=== PATIENT | male | born 1960 | race Two or more races ===

== ENCOUNTER 2018-08-29 11:52 | Inpatient (IN) | payer BC, OTHER ==
[~2018-08-29] VITALS: Ht 162.6 cm; Wt 79.1 kg
--- NOTE | 2018-08-29 12:16 | NUR ---
CLERICAL COORDINATOR: PT TO ROOM FROM [facility], AMBULATORY UPRIGHT STEADY GAIT
[2018-08-29] MEDS ORDERED: ASPIRIN 81 MG TABLET CHEW PO ONE ×2 (12:30→13:30)
--- NOTE | 2018-08-29 12:34 | NUR ---
PT PRESENTS TO ED WITH CPX 2 DAYS, WORSENING ABOUT 2HRS AGO. 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 PULSES IN LLE 2+ AND CAP REFILL <3SEC. NO PAIN OR REDNESS AT SITE. NO MEDICAL HX. PT SPAINISH SPEAKING WITH SON AT BEDSIDE. PT PLACED ON MONITOR. PT STILL C/O 8-9/10 CHEST PAIN. VSS. CALL LIGHT WITHIN REACH
[2018-08-29 12:41] LABS: BASOPHILS # (AUTO) 0.03 x10^3/uL (0-0.1); BASOPHILS % (AUTO) 1 % (0-1); EOSINOPHILS # (AUTO) 0.07 x10^3/uL (0-0.4); EOSINOPHILS % (AUTO) 1 % (1-7); LYMPHOCYTES # (AUTO) 2.24 x10^3/uL (1-3.4); LYMPHOCYTES % (AUTO) 40 % (22-44); MD NO; MEAN CORPUSCULAR HEMOGLOBIN 31.7 pg (27.5-34.5); MEAN CORPUSCULAR HGB CONC 35.5 g/dL (33.2-36.2); MEAN CORPUSCULAR VOLUME 89.1 fL (81-97); MEAN PLATELET VOLUME 9.2 fL (7.4-10.4); MONOCYTES # (AUTO) 0.26 x10^3/uL (0.2-0.8); MONOCYTES % (AUTO) 5 % (2-9); NEUTROPHILS # (AUTO) 3.03 x10^3/uL (1.8-6.8); NEUTROPHILS % (AUTO) 54 % (42-75); PLATELET COUNT 229 x10^3/uL (130-400); RED BLOOD COUNT 4.76 x10^6/uL (4.38-5.82); RED CELL DISTRIBUTION WIDTH 13.1 % (9.4-14.8)
[2018-08-29 12:52] LABS: ALBUMIN 4.4 g/dL (3.4-5.0); ANION GAP 6 mmol/L (5-15); CALCIUM 8.6 mg/dL (8.5-10.1); CHLORIDE 110 mmol/L (98-107)
[2018-08-29 12:58] LABS: CREATININE 0.98 mg/dL (0.7-1.3); TROPONIN I < 0.015 ng/mL (0.000-0.045)
[2018-08-29] MEDS ORDERED: ASPIRIN 81 MG TABLET CHEW ONE (13:03)
--- NOTE | 2018-08-29 13:30 | NUR ---
PT RESTING IN [place], [place], SON AT BEDSIDE, REPEAT EKG DONE. PT UP FOR RECHECK, VSS, CALL LIGHT WITHIN REACH
--- NOTE | 2018-08-29 14:36 | NUR ---
ATTEMPTED TO CALL REPORT, PLACED ON HOLD AND NO ANSWER. WILL TRY AGAIN
--- NOTE | 2018-08-29 14:42 | NUR ---
REPORT GIVEN TO SARITA RN, TECH PLACING IV THEN PT RTG
[2018-08-29 15:30] VITALS: BP 150/81
[2018-08-29] MEDS ORDERED: HYDROcodone/APAP 5/325 TABLET PO PRN (17:30)
[2018-08-29] MEDS ORDERED: ACETAMINOPHEN 325 MG TABLET PO PRN (17:30)
[2018-08-29] MEDS ORDERED: ONDANSETRON 2MG/ML, 2ML IVPush PRN (17:30)
[2018-08-29] MEDS ORDERED: hydrALAzine 20 MG/ML, 1ML IVPush PRN (17:30)
[2018-08-29] MEDS ORDERED: DOCUSATE 100 MG CAPSULE PO PRN (17:30)
[2018-08-29] MEDS ORDERED: BISACODYL 10 MG SUPP PR PRN (17:30)
[2018-08-29] MEDS ORDERED: NITROGLYCERIN 0.4 MG BOTTLE (25 TABS) SL PRN (17:30)
[2018-08-29] MEDS ORDERED: ONDANSETRON ODT 4 MG PO PRN (17:30)
[2018-08-29] MEDS ORDERED: POLYETHYLENE GLYCOL 17 GM PACKET PO PRN (17:30)
[2018-08-29] MEDS ORDERED: morphine SULFATE 10 MG/ML, 1ML IVPush PRN (17:30)
[2018-08-29] MEDS ORDERED: PROMETHAZINE 25 MG/ML, 1ML IM PRN (17:30)
[2018-08-29] MEDS: SODIUM CHLORIDE 0.9% 1,000 ML IV SCH (18:00)
[2018-08-29] MEDS: HEPARIN 5,000 UNITS/ML, 1ML SQ SCH (18:20)
[2018-08-29] MEDS: LISINOPRIL 10 MG TABLET PO SCH (18:20)
[2018-08-29 18:56] LABS: FREE T4 (FREE THYROXINE) 1.01 ng/dL (0.76-1.46); THYROID STIMULATING HORMONE 0.522 mIU/L (0.358-3.740)
[2018-08-29 19:02] LABS: HEMOGLOBIN A1C 5.8 % (4.2-6.3)
[2018-08-29 20:00] VITALS: BP 123/80
[2018-08-29 21:07] LABS: TROPONIN I < 0.015 ng/mL (0.000-0.045)
[2018-08-29 21:10] LABS: MICROSCOPIC NOT IND
[2018-08-29 21:14] LABS: CULTURE INDICATED? NO
[2018-08-29] MEDS ORDERED: OMNIPAQUE 350 MG/ML, 100ML BOTTLE ONE (22:35)
[2018-08-30 01:44] VITALS: BP 131/86
[2018-08-30] MEDS: HEPARIN 5,000 UNITS/ML, 1ML SQ SCH ×3 (01:58→17:18)
[2018-08-30 02:25] LABS: BASOPHILS # (AUTO) 0.03 x10^3/uL (0-0.1); BASOPHILS % (AUTO) 1 % (0-1); EOSINOPHILS # (AUTO) 0.08 x10^3/uL (0-0.4); EOSINOPHILS % (AUTO) 1 % (1-7); LYMPHOCYTES # (AUTO) 3.11 x10^3/uL (1-3.4); LYMPHOCYTES % (AUTO) 49 % (22-44); MD NO; MEAN CORPUSCULAR HEMOGLOBIN 30.3 pg (27.5-34.5); MEAN CORPUSCULAR HGB CONC 33.3 g/dL (33.2-36.2); MEAN CORPUSCULAR VOLUME 91.1 fL (81-97); MEAN PLATELET VOLUME 9.5 fL (7.4-10.4); MONOCYTES # (AUTO) 0.33 x10^3/uL (0.2-0.8); MONOCYTES % (AUTO) 5 % (2-9); NEUTROPHILS # (AUTO) 2.83 x10^3/uL (1.8-6.8); NEUTROPHILS % (AUTO) 44 % (42-75); PLATELET COUNT 201 x10^3/uL (130-400); RED BLOOD COUNT 4.83 x10^6/uL (4.38-5.82); RED CELL DISTRIBUTION WIDTH 12.8 % (9.4-14.8)
[2018-08-30 02:30] LABS: ALANINE AMINOTRANSFERASE 37 U/L (12-78); ALBUMIN 3.7 g/dL (3.4-5.0); ANION GAP 6 mmol/L (5-15); CALCIUM 8.3 mg/dL (8.5-10.1); CHLORIDE 110 mmol/L (98-107); CHOLESTEROL, TOTAL 178 mg/dL (140-239); CREATININE 0.89 mg/dL (0.7-1.3); TRIGLYCERIDES 333 mg/dL (50-200); VLDL CHOLESTEROL 67 mg/dL (0-25)
[2018-08-30 02:32] LABS: ALKALINE PHOSPHATASE 62 U/L (45-117); BILIRUBIN,TOTAL 0.3 mg/dL (0.2-1.0); CHOL/HDL RATIO 5.2; HDL CHOL % 19 % (26-37); HDL CHOLESTEROL (DIRECT) 34 mg/dL (40-60); LDL CHOLESTEROL,CALCULATED 77 mg/dL (54-169); LDL/HDL RATIO 2.3 (0.5-3.0); TOTAL PROTEIN 6.8 g/dL (6.4-8.2)
[2018-08-30 02:34] LABS: TROPONIN I < 0.015 ng/mL (0.000-0.045)
[2018-08-30] MEDS: ASPIRIN 325 MG TABLET EC PO SCH (05:46)
[2018-08-30] MEDS: SODIUM CHLORIDE 0.9% 1,000 ML IV SCH (08:04)
[2018-08-30] MEDS ORDERED: REGADENOSON 0.4 MG/5 ML SYRINGE ONE (08:36)
[2018-08-30 08:53] VITALS: BP 117/72
[2018-08-30] MEDS: LISINOPRIL 10 MG TABLET PO SCH (08:55)
[2018-08-30] MEDS ORDERED: GADOBUTROL 7.5 MMOL/7.5 ML PFS ONE (13:05)
[2018-08-30 15:59] VITALS: BP 114/72
[2018-08-30 20:00] VITALS: BP 119/74
[2018-08-31 01:18] VITALS: BP 107/64
[2018-08-31] MEDS: HEPARIN 5,000 UNITS/ML, 1ML SQ SCH ×2 (02:11→09:04)
[2018-08-31] MEDS: ASPIRIN 325 MG TABLET EC PO SCH (05:54)
[2018-08-31] MEDS ORDERED: METH500T7 PO (07:57)
[2018-08-31] MEDS ORDERED: DOCU-131 PO (07:57)
[2018-08-31] MEDS ORDERED: POLY17PO5 PO (07:57)
[2018-08-31] MEDS ORDERED: TRAM50TA2 PO (07:57)
[2018-08-31] MEDS ORDERED: LISI5TAB7 PO (07:57)
[2018-08-31] MEDS ORDERED: GABA-826 PO (07:57)
[2018-08-31] MEDS ORDERED: ACET500T71 PO (07:57)
[2018-08-31] MEDS ORDERED: ACETAMINOPHEN 500 MG TABLET PO SCH (08:00)
[2018-08-31] MEDS ORDERED: GABAPENTIN 100 MG CAPSULE PO SCH (08:00)
[2018-08-31] MEDS ORDERED: METHOCARBAMOL 500 MG TABLET PO PRN (08:00)
[2018-08-31 08:18] VITALS: BP 120/75
[2018-08-31] MEDS ORDERED: LISINOPRIL 5 MG TABLET PO SCH (09:00)
== END 2018-08-31 10:55 | disposition home or self-care (01) | DRG 544 ==
LOC: ED 13:19 → EDIP 14:05 → 5SO 15:19 → DCLOUNGE 08-31 10:20
PROVIDERS: ADMIT Internal Medicine; ATTEND Internal Medicine
DX: M48.54XA Collapsed vertebra, not elsewhere classified, thoracic region, initial encounter for fracture (principal); I10 Essential (primary) hypertension; R07.9 Chest pain, unspecified; I83.90 Asymptomatic varicose veins of unspecified lower extremity; R55 Syncope and collapse; M48.061 Spinal stenosis, lumbar region without neurogenic claudication; M51.34 Other intervertebral disc degeneration, thoracic region; Z80.0 Family history of malignant neoplasm of digestive organs; Z80.42 Family history of malignant neoplasm of prostate; Z90.49 Acquired absence of other specified parts of digestive tract
CPT/HCPCS: 36415; 71045; 71275; 72157; 72158; 78452; 80048; 80053; 80061; 81003; 82040; 83036; 83735; 84439; 84443; 84484; 85025; 85379; 93005; 93017; 93306; 99285; A9585; G0378; J1644; J2785; Q9967; A9502; C9898; J7030